=== PATIENT | male | born 1985 | race American Indian/Alaskan Native ===

== ENCOUNTER 2018-05-05 05:56 | Emergency (ER) | payer SELFPAY ==
[2018-05-05] MEDS ORDERED: PROVENTIL IH ONE ×3 (06:14→07:24)
--- NOTE | 2018-05-05 06:54 | Emergency Department Report ---
ED Shortness of Breath HPI - General Chief Complaint: Dyspnea/Respdistress Stated Complaint: SOB Time Seen by Provider: 05/05/18 06:53 Source: patient, EMS Mode of arrival: Stretcher Limitations: No Limitations - History of Present Illness Initial Comments: This is unable to use albuterol inhaler 3 days ago and this morning he started having severe shortness of breath. Complaint: shortness of breath, "asthma attack" -: Sudden, This morning Severity: moderate Pain Scale: 5 Improves With: bronchodilators Worsens With: nothing Known History Of: asthma Associated Symptoms: denies other symptoms Treatments Prior to Arrival: none - Related Data Home Oxygen Therapy: No Previous Rx's Medication Instructions Recorded Last Taken Type ALBUTEROL Inhaler(NF) [VENTOLIN 2 puff IH Q4H PRN #1 inha 05/05/18 Unknown Rx Inhaler(NF)] Albuterol Sulfate [Albuterol 0.63% 0.63 mg IH Q6H PRN #60 ml 05/05/18 Unknown Rx NEBS] predniSONE [Deltasone] 50 mg PO QDAY #5 tab 05/05/18 Unknown Rx Allergies Allergy/AdvReac Type Severity Reaction Status Date / Time peanut Allergy Unknown Verified 05/05/18 06:04 shellfish derived Allergy Unknown Verified 05/05/18 06:04 ED Review of Systems ROS: Stated complaint: SOB Other details as noted in HPI Comment: All other systems reviewed and negative Constitutional: denies: chills, fever Eyes: denies: eye pain, eye discharge ENT: denies: ear pain, throat pain Respiratory: shortness of breath, wheezing. denies: cough Cardiovascular: denies: chest pain, palpitations, dyspnea on exertion Endocrine: no symptoms reported Gastrointestinal: denies: abdominal pain, nausea, vomiting, diarrhea Genitourinary: denies: urgency, dysuria, frequency Musculoskeletal: denies: back pain, joint swelling Skin: denies: rash, lesions Neurological: denies: headache, weakness, numbness Psychiatric: denies: anxiety, depression Hematological/Lymphatic: denies: easy bleeding, easy bruising ED Past Medical Hx - Past Medical History Previous Medical History?: Yes Hx Asthma: Yes - Surgical History Past Surgical History?: No - Social History Smoking Status: Never Smoker Substance Use Type: None - Medications Home Medications: Home Medications Medication Instructions Recorded Confirmed Last Taken Type ALBUTEROL Inhaler(NF) [VENTOLIN 2 puff IH Q4H PRN #1 inha 05/05/18 Unknown Rx Inhaler(NF)] Albuterol Sulfate [Albuterol 0.63% 0.63 mg IH Q6H PRN #60 ml 05/05/18 Unknown Rx NEBS] predniSONE [Deltasone] 50 mg PO QDAY #5 tab 05/05/18 Unknown Rx ED Physical Exam - General Limitations: No Limitations General appearance: alert, in distress - Head Head exam: Present: atraumatic, normocephalic, normal inspection - Eye Eye exam: Present: normal appearance, PERRL, EOMI Pupils: Present: normal accommodation - ENT ENT exam: Present: normal exam, normal orophraynx, mucous membranes moist - Neck Neck exam: Present: normal inspection, full ROM. Absent: tenderness - Respiratory Respiratory exam: Present: normal lung sounds bilaterally, respiratory distress , wheezes. Absent: rales, rhonchi, stridor - Cardiovascular Cardiovascular Exam: Present: regular rate, normal rhythm, normal heart sounds - GI/Abdominal GI/Abdominal exam: Present: soft, normal bowel sounds. Absent: distended, tenderness, guarding, rebound - Extremities Exam Extremities exam: Present: normal inspection, full ROM, normal capillary refill. Absent: tenderness - Back Exam Back exam: Present: normal inspection, full ROM. Absent: tenderness - Neurological Exam Neurological exam: Present: alert, oriented X3, CN II-XII intact - Psychiatric Psychiatric exam: Present: normal affect, normal mood - Skin Skin exam: Present: warm, dry, intact, normal color ED Course Vital Signs 05/05/18 05/05/18 05/05/18 06:00 06:19 06:40 Temperature Pulse Rate 60 Pulse Rate [ 94 H Bilateral] Respiratory 22 24 Rate Respiratory 18 Rate [Bilateral ] Blood Pressure 141/66 Blood Pressure [Left] O2 Sat by Pulse 99 98 Oximetry 05/05/18 07:45 Temperature 97.7 F Pulse Rate 58 L Pulse Rate [ Bilateral] Respiratory 18 Rate Respiratory Rate [Bilateral ] Blood Pressure Blood Pressure 126/70 [Left] O2 Sat by Pulse 100 Oximetry - Reevaluation(s) Reevaluation #1: 05/05/18 12:57 Patient was much better after his breathing treatment in the emergency room. He was to go home. ED Medical Decision Making - Radiology Data Radiology results: report reviewed, image reviewed - Medical Decision Making Asthma exacerbation. Critical care attestation.: If time is entered above; I have spent that time in minutes in the direct care of this critically ill patient, excluding procedure time. ED Disposition Clinical Impression: Asthma exacerbation Qualifiers: Asthma severity: mild Asthma persistence: intermittent Qualified Code(s): J45.21 - Mild intermittent asthma with (acute) exacerbation Disposition: TO HOME OR SELFCARE Is pt being admited?: No Does the pt Need Aspirin: No Condition: Stable Instructions: Asthma (ED) Additional Instructions: Patient follow up with your primary doctor tomorrow morning. Return to the emergency room if condition worsens. Prescriptions: ALBUTEROL Inhaler(NF) [VENTOLIN Inhaler(NF)] 2 puff IH Q4H PRN #1 inha PRN Reason: Wheezing Albuterol Sulfate [Albuterol 0.63% NEBS] 0.63 mg IH Q6H PRN #60 ml PRN Reason: Shortness Of Breath predniSONE [Deltasone] 50 mg PO QDAY #5 tab Referrals: PRIMARY CARE, [Primary Care Provider] - 3-5 Days Forms: Work/School Release Form(ED) Time of Disposition: 09:12
[2018-05-05] MEDS ORDERED: DELTASONE PO ONE (07:24)
[2018-05-05 07:51] VITALS: BP 126/70
--- NOTE | 2018-05-05 09:05 | XRay Report ---
AP CHEST: HISTORY: Shortness of breath The lungs are hyperinflated but clear. No pleural effusion or pneumothorax. Normal heart and mediastinal structures. Normal bony thorax. IMPRESSION: Hyperinflation. Correlate for asthma.
== END 2018-05-05 10:00 | disposition home or self-care (01) ==
LOC: ED 05:56
DX: J45.901 Unspecified asthma with (acute) exacerbation (principal); Z91.010 Allergy to peanuts; Z91.013 Allergy to seafood
CPT/HCPCS: 71045; 94640; 99284; J7512

== ENCOUNTER 2018-12-24 09:24 | Emergency (ER) | payer SELFPAY ==
[2018-12-24 09:34] VITALS: BP 122/74
[2018-12-24] MEDS ORDERED: DUONEB *Not for PRN Use IH ONE (09:47)
--- NOTE | 2018-12-24 11:07 | Emergency Department Report ---
ED Asthma HPI - General Chief Complaint: Adult Asthma Stated Complaint: CHEST PAIN/ASTHMA Time Seen by Provider: 12/24/18 10:29 Source: patient Mode of arrival: Ambulatory Limitations: No Limitations - History of Present Illness Initial Comments: 3-year-old male states he is from out of town although he has been to this facility before. He states he's been out of his medicine for 2 weeks. His asthma flared up. He had one neb prior to my arrival. He now states he is ready for discharge. He requests renewal of his asthma medications. He denies chest pain fever or chills. He is no longer wheezing. Complaint: "asthma attack" -: Gradual, hour(s) Asthma History: childhood onset, history of prior ED visit Context: none known Associated Symptoms: none Treatments Prior to Arrival: inhaled bronchodilator, inhaled steroid - Related Data Previous Rx's Medication Instructions Recorded Last Taken Type predniSONE [Deltasone] 50 mg PO QDAY #5 tab 05/05/18 Unknown Rx Ibuprofen [Motrin 600 MG tab] 600 mg PO Q8H PRN #30 tablet 07/16/18 Unknown Rx ALBUTEROL Inhaler(NF) [VENTOLIN 2 puff IH Q4H PRN #1 inha 12/24/18 Unknown Rx Inhaler(NF)] Albuterol Sulfate [Albuterol 0.63% 0.63 mg IH Q6H PRN #60 ml 12/24/18 Unknown Rx NEBS] Fluticasone Propionate [Flovent 12 gm IH BID #1 aer.w.adap 12/24/18 Unknown Rx Hfa] Loratadine [Claritin] 10 mg PO DAILY #30 tablet 12/24/18 Unknown Rx Allergies Allergy/AdvReac Type Severity Reaction Status Date / Time peanut Allergy Unknown Verified 07/16/18 17:28 shellfish derived Allergy Unknown Verified 07/16/18 17:28 ED Review of Systems ROS: Stated complaint: CHEST PAIN/ASTHMA Other details as noted in HPI Constitutional: denies: chills, fever Eyes: denies: eye pain, eye discharge, vision change ENT: denies: ear pain, throat pain Respiratory: wheezing. denies: cough, shortness of breath Cardiovascular: denies: chest pain, palpitations Endocrine: no symptoms reported Gastrointestinal: denies: abdominal pain, nausea, diarrhea Genitourinary: denies: urgency, dysuria Musculoskeletal: denies: back pain, joint swelling, arthralgia Skin: denies: rash, lesions Neurological: denies: headache, weakness, paresthesias Psychiatric: denies: anxiety, depression Hematological/Lymphatic: denies: easy bleeding, easy bruising ED Past Medical Hx - Past Medical History Previous Medical History?: Yes Hx Asthma: Yes - Surgical History Past Surgical History?: No - Social History Smoking Status: Current Every Day Smoker Substance Use Type: Alcohol, Marijuana - Medications Home Medications: Home Medications Medication Instructions Recorded Confirmed Last Taken Type predniSONE [Deltasone] 50 mg PO QDAY #5 tab 05/05/18 Unknown Rx Ibuprofen [Motrin 600 MG tab] 600 mg PO Q8H PRN #30 tablet 07/16/18 Unknown Rx ALBUTEROL Inhaler(NF) [VENTOLIN 2 puff IH Q4H PRN #1 inha 12/24/18 Unknown Rx Inhaler(NF)] Albuterol Sulfate [Albuterol 0.63% 0.63 mg IH Q6H PRN #60 ml 12/24/18 Unknown Rx NEBS] Fluticasone Propionate [Flovent 12 gm IH BID #1 aer.w.adap 12/24/18 Unknown Rx Hfa] Loratadine [Claritin] 10 mg PO DAILY #30 tablet 12/24/18 Unknown Rx ED Physical Exam - General Limitations: No Limitations General appearance: alert, in no apparent distress - Head Head exam: Present: atraumatic, normocephalic - Eye Eye exam: Present: normal appearance. Absent: scleral icterus - ENT ENT exam: Present: mucous membranes moist - Neck Neck exam: Present: normal inspection. Absent: tenderness, meningismus - Respiratory Respiratory exam: Present: normal lung sounds bilaterally. Absent: respiratory distress - Cardiovascular Cardiovascular Exam: Present: regular rate, normal rhythm. Absent: systolic murmur, diastolic murmur, rubs, gallop - GI/Abdominal GI/Abdominal exam: Present: soft, normal bowel sounds. Absent: distended, tenderness, guarding, rebound, rigid - Rectal Rectal exam: Present: deferred - Extremities Exam Extremities exam: Present: normal inspection - Back Exam Back exam: Present: normal inspection - Neurological Exam Neurological exam: Present: alert, oriented X3, CN II-XII intact. Absent: motor sensory deficit - Psychiatric Psychiatric exam: Present: normal affect, normal mood - Skin Skin exam: Present: warm, dry, intact, normal color. Absent: rash ED Course Vital Signs 12/24/18 12/24/18 09:28 10:30 Temperature 97.7 F Pulse Rate 78 Respiratory 22 18 Rate Blood Pressure 122/74 O2 Sat by Pulse 98 98 Oximetry - Reevaluation(s) Reevaluation #1: Wheezing has resolved. 12/24/18 11:06 Critical care attestation.: If time is entered above; I have spent that time in minutes in the direct care of this critically ill patient, excluding procedure time. ED Disposition Clinical Impression: Asthma exacerbation Qualifiers: Asthma severity: mild Asthma persistence: unspecified Qualified Code(s): J45.901 - Unspecified asthma with (acute) exacerbation Disposition: - TO HOME OR SELFCARE Is pt being admited?: No Does the pt Need Aspirin: No Condition: Stable Instructions: Asthma (ED) Additional Instructions: Return as needed in any acute change or problem. Primary care follow-up. See listed options. Prescriptions: Albuterol Sulfate [Albuterol 0.63% NEBS] 0.63 mg IH Q6H PRN #60 ml PRN Reason: Shortness Of Breath Loratadine [Claritin] 10 mg PO DAILY #30 tablet Fluticasone Propionate [Flovent Hfa] 12 gm IH BID #1 aer.w.adap ALBUTEROL Inhaler(NF) [VENTOLIN Inhaler(NF)] 2 puff IH Q4H PRN #1 inha PRN Reason: Wheezing Referrals: ELIAS GONZALEZ MD [Staff Physician] - 3-5 Days CHINTAN KWON MD [Staff Physician] - 3-5 Days Forms: Work/School Release Form(ED) Time of Disposition: 11:06
--- NOTE | 2018-12-24 11:12 | XRay Report ---
CHEST 2 VIEWS INDICATION: Chest pain, cough. COMPARISON: 05/05/2018. FINDINGS: PA and lateral chest radiographs demonstrate normal cardiomediastinal silhouette. Clear lungs. Intact bones. CONCLUSION: No acute disease in the chest. Thank you for the opportunity to participate in this patient's care.
== END 2018-12-24 11:40 | disposition home or self-care (01) ==
LOC: ED 09:24
DX: J45.901 Unspecified asthma with (acute) exacerbation (principal); F17.200 Nicotine dependence, unspecified, uncomplicated; F12.10 Cannabis abuse, uncomplicated; Z91.013 Allergy to seafood; Z91.010 Allergy to peanuts
CPT/HCPCS: 71046; 94640